=== PATIENT | female | born 1980 | race Caucasian/White ===

== ENCOUNTER 2023-01-26 06:03 | Day surgery (SDC) | payer BC ==
[2023-01-24 14:21] VITALS: BMI 20.9
[2023-01-26] MEDS ORDERED: fentaNYL 50 mcg/mL 1 mL Vial ONE (07:43)
[2023-01-26] MEDS ORDERED: PROPOFOL 40 ML ONE (07:43)
[2023-01-26] MEDS ORDERED: PROPOFOL 20 ML ONE (08:19)
== END 2023-01-26 09:05 | disposition home or self-care (01) ==
LOC: CSHSDC 06:03
PROVIDERS: ATTEND Internal Medicine Gastroenterology
PROC: 0DJ08ZZ Inspection of Upper Intestinal Tract, Via Natural or Artificial Opening Endoscopic (ICD-10-PCS; principal; 2023-01-26)
PROC: 0DJD8ZZ Inspection of Lower Intestinal Tract, Via Natural or Artificial Opening Endoscopic (ICD-10-PCS; principal; 2023-01-26)
DX: Z12.11 Encounter for screening for malignant neoplasm of colon (principal); K64.8 Other hemorrhoids; K21.9 Gastro-esophageal reflux disease without esophagitis; Z79.82 Long term (current) use of aspirin
CPT/HCPCS: J2704; J3010